=== PATIENT | female | born 1955 | race Caucasian/White ===

== ENCOUNTER → 2023-09-26 15:14 | Outpatient (REF) | payer MEDICARE, SELFPAY | LOC: WDC 15:14 | PROVIDERS: ATTENDING PHYSICIAN Surgery; FAMILY PHYSICIAN Internal Medicine | DX: Z12.31 Encounter for screening mammogram for malignant neoplasm of breast (principal) | CPT/HCPCS: 77063; 77067 ==

== ENCOUNTER 2024-10-09 06:19 | Day surgery (SDC) | payer MEDICARE, SELFPAY | END 2024-10-09 15:16 | disposition home or self-care (01) | LOC: GI 06:19 | PROVIDERS: ATTENDING PHYSICIAN Internal Medicine | DX: Z12.11 Encounter for screening for malignant neoplasm of colon (principal); K64.8 Other hemorrhoids; K57.30 Diverticulosis of large intestine without perforation or abscess without bleeding; Z86.0100 Personal history of colon polyps, unspecified | CPT/HCPCS: G0105 ==

== ENCOUNTER → 2024-10-10 14:50 | Outpatient (REF) | payer MEDICARE, SELFPAY | LOC: WDC 14:50 | PROVIDERS: ATTENDING PHYSICIAN Internal Medicine | DX: Z12.31 Encounter for screening mammogram for malignant neoplasm of breast (principal) | CPT/HCPCS: 77063; 77067 ==

== ENCOUNTER 2024-10-10 15:36 | Emergency (ER) | payer MEDICARE, SELFPAY ==
[2024-10-10 15:45] VITALS: BP 154/93
--- NOTE | 2024-10-10 16:27 | ED.GENMED ---
History of Present Illness
General
Chief Complaint: Skin Surface Trauma
Source: patient
Exam Limitations: none
Time Seen by Provider: 10/10/24 16:09
Nursing documentation reviewed up to this point in time: agreed with
History of Present Illness
History of Present Illness:
68-year-old female presents with finger laceration. She caught the dorsum of her thumb in the slide of a gun and sustained a laceration. Unsure of her last tetanus. No other issues or injuries.
Review of Systems
Review of Systems
All Other Systems: ROS reviewed and negative except as documented in HPI and ROS
Skin: Reports other (Laceration)
Phy Exam
Physical Exam
Physical Exam:
General: Well appearing and non-toxic
HEENT: protecting airway
Neck: appears supple
CV: No evidence of cyanosis
Resp: No accessory muscle use
Abd: Non-distended
Extremities: No deformities
Neuro: Alert
Psych: Normal affect
Skin: Patient has approximately 2 cm linear horizontal laceration across the dorsum of the left thumb, good range of motion of the thumb no exposed tendon, no foreign body noted
Scores
Heart Failure Risk
Heart Failure Risk Score: Not Applicable
Heart Score for Chest Pain Patients
STEMI patient?: Not applicable
Withdrawal Assessment of Alcohol
Withdrawal Assessment Completed?: Not applicable
Course
Vital Signs
Initial and Last Documented VS:
Initial Vital Signs
Temp Pulse Resp BP Pulse Ox
36.6 C 66 16 154/93 97
10/10/24 15:45 10/10/24 15:45 10/10/24 15:45 10/10/24 15:45 10/10/24 15:45
Last Documented Vital Signs
Temp Pulse Resp BP Pulse Ox
36.6 C 66 16 154/93 97
10/10/24 15:45 10/10/24 15:45 10/10/24 15:45 10/10/24 15:45 10/10/24 15:45
Procedures
Laceration Closure
Left Thumb:
Status of Wound: clean
Size of Wound in cm: 2
Description of Wound Edges: sharp
Preparation: cleaned with saline
Anesthesia: 1% Lidocaine
Revision/Debridement: routine- no revision
Type of Closure: single layer closure
Skin Closure Material: 5-0 prolene
Number of sutures: 3
MDM/Problems Addressed
Differential Diagnosis Includes:
Thumb laceration
MDM/Problems Addressed:
68-year-old female presents with thumb laceration. Irrigated and repaired as documented in procedure note. Tetanus updated. Stable for discharge.
Acute Exacerbation and/or Progression of Chronic Illness:
Acutely hypertensive with no signs or symptoms of hypertensive emergency�no indication for emergent antihypertensive treatment
Acute Exacerbation and/or Progression of Chronic Illness: HTN
*Pulse Oximetry
Patient hypoxic: no
*Critical Care Note
Total Time (30-74mins, 75-104mins- exclusive of procedures): Not Applicable
Data Reviewed
Source: patient
ED Attending Note
-
Portions of this chart may have been created with voice recognition software.� Occasional wrong word or��sound alike� substitutions may have occurred due to the inherent limitations of voice recognition software.
Discharge Plan
Departure
Patient Disposition: Home (Routine Discharge)
Date of Disposition: 10/10/24
Time of Disposition: 16:26
Patient with high blood pressure during this ER visit?: Yes
Discharge Problem:
Laceration of thumb
Instructions: Laceration Repair With Stitches (DC)
Activity Restrictions/Additional Instructions:
Your stitches must be removed in 7-10 days. You can either return here to the emergency room, go to urgent care, or follow-up with your primary doctor for suture removal. If you notice any signs of infection please return immediately for
reassessment.
Interventions
Interventions:
*Risk Screen - Suicide Last Done: 10/10/24 15:49
*General Assessment Last Done: 10/10/24 15:52
*Neglect/Abuse Screening Last Done: 10/10/24 15:49
*ED- Fall Risk Assessment Last Done: 10/10/24 15:52
*ED COVID-19 Vaccine History Last Done: 10/10/24 15:52
ED-Skin Assessment Last Done: 10/10/24 15:52
Discharge Date and Time
Print Language: [id number]
[2024-10-10] MEDS: ADACEL 0.5 ML IM (16:37)
== END 2024-10-10 16:47 | disposition home or self-care (01) ==
LOC: EMR 15:36
PROVIDERS: EMERGENCY PHYSICIAN Emergency Medicine; FAMILY PHYSICIAN Internal Medicine
DX: S61.012A Laceration without foreign body of left thumb without damage to nail, initial encounter (principal); W26.8XXA Contact with other sharp object(s), not elsewhere classified, initial encounter; Z23 Encounter for immunization; R03.0 Elevated blood-pressure reading, without diagnosis of hypertension
CPT/HCPCS: 99282; 12001; 90471; 90715

== ENCOUNTER → 2025-01-02 14:42 | Outpatient (REF) | payer MEDICARE, SELFPAY | LOC: PAVMRI 14:42 | PROVIDERS: ATTENDING PHYSICIAN Otolaryngology; FAMILY PHYSICIAN Internal Medicine | DX: D33.3 Benign neoplasm of cranial nerves (principal) | CPT/HCPCS: 70553; A9575 ==

== ENCOUNTER → 2025-05-14 14:38 | Outpatient (REF) | payer MEDICARE, SELFPAY | LOC: RAD 14:38 | PROVIDERS: ATTENDING PHYSICIAN Internal Medicine | DX: M46.1 Sacroiliitis, not elsewhere classified (principal) | CPT/HCPCS: 72110; 72170; 72202 ==